=== PATIENT | female | born 1975 | race Asian ===

== ENCOUNTER 2023-03-30 14:39 | Outpatient (CLI) | payer BC | END 2023-03-30 14:40 | disposition home or self-care (01) | LOC: RAD 14:39 | PROVIDERS: ATTEND Student in an Organized Health Care Education/Training Program | DX: M54.50 Low back pain, unspecified (principal); G89.29 Other chronic pain; M47.817 Spondylosis without myelopathy or radiculopathy, lumbosacral region | CPT/HCPCS: 72100 ==